=== PATIENT | female | born 1940 | race Caucasian/White ===

== ENCOUNTER 2017-10-16 15:39 | Inpatient (IN) | END 2017-10-20 17:05 | disposition home or self-care (01) | DRG 253 ==

== ENCOUNTER 2018-02-26 07:25 | Inpatient (IN) | END 2018-03-07 17:55 | DRG 270 ==

== ENCOUNTER 2018-03-15 16:08 | Inpatient (IN) | END 2018-04-02 18:06 | DRG 226 ==

== ENCOUNTER 2018-04-30 14:36 | Inpatient (IN) | END 2018-05-07 14:36 | DRG 239 ==

== ENCOUNTER 2018-06-05 20:01 | Inpatient (IN) | END 2018-06-12 19:05 | DRG 854 ==

== ENCOUNTER 2018-08-20 06:07 | Day surgery (SDC) | payer MEDICARE, OTHER ==
[~2018-08-20 06:07] MED LIST: ACET-2047 PO; ASPI81TA52 PO; ATOR40TA68 PO; CLOP75TA27 PO; ISOS30TA67 PO; LANT3I SC; LINA5TAB PO; LISI-313 PO; LUBI24CA7 PO; MAGN400O19 PO; METO-335 PO; MULTI PO; NITR0.4T39 SL; NOVO3I SC; ONDA4TAB13 PO; PANT40TA3 PO; POLY17PO6 PO
[2018-08-20] MEDS ORDERED: POLYMYXIN B 500000 UNIT INJ ONE (06:44)
[2018-08-20] MEDS ORDERED: BACITRACIN 50000 UNITS INJ ONE (06:47)
[2018-08-20 07:00] VITALS: BP 152/65; PULSE 77; RESP 18
[2018-08-20] MEDS ORDERED: ACETAMINOPHEN 500 MG TAB PO ONE (07:00)
--- NOTE | 2018-08-20 07:06 | PREAC ---
Date/Time of Note Date/Time of Note DATE: 08/20/18 TIME: 07:01 Anesthesia Eval and Record Evaluation Time Pre-Procedure Interview DATE: 08/20/18 TIME: 07:01 Age 78 Sex female NPO: 8 hrs Preoperative diagnosis L foot ulcer Planned procedure L foot wound bed prep and application of integra skin allograft Past Medical History Past Medical History: Includes (cardiomyopathy) Cardio: HTN, Dyslipidemia, [place] Endo: Diabetes Renal: CKD Surgery & Anesthesia Issues No known issue (pacemaker) Meds Anticoagulation: Yes (on plavix, pt did not stop taking it - dr milton will be made aware by nurse now @[phone] , most likely case will be cancelled.) Beta Kelsey within 24 hr: Yes Reason Beta Kelsey not given: Pt. not on B-Kelsey Active Scripts Insulin Glargine* (Lantus*) 100 Unit/Ml Soln, 7 UNIT SC BID WITH MEALS, #1 VIAL Prov:TAMIA NOEL MD 06/11/18 Reported Medications Ondansetron Hcl* (Zofran*) 4 Mg Tab, 4 MG PO Q6H PRN for NAUSEA AND OR VOMITING, TAB 04/30/18 Lubiprostone* (Amitiza*) 24 Mcg Capsule, 24 MCG PO BID PRN for CONSTIPATION, #60 CAP 04/30/18 Lisinopril* (Lisinopril*) 5 Mg Tablet, 5 MG PO BID, #30 TAB 04/30/18 Metoprolol Succinate* (Toprol XL*) 25 Mg Tab.sr.24h, 25 MG PO BID, #30 TAB 04/30/18 Isosorbide Mononitrate* (Isosorbide Mononitrate*) 30 Mg Tab.er.24h, 30 MG PO DAILY, TAB 04/30/18 Polyethylene Glycol* (Miralax*) 17 Gm Powd.pack, 17 GM PO DAILY PRN for C ONSTIPATION, #30 PACKET 04/30/18 Magnesium Hydroxide* (Milk Of Magnesia*) 400 Mg/5 Ml Oral.susp, 30 ML PO DAILY, ML 04/30/18 Multivitamins* (Theragran*) 1 Tab Tab, 1 TAB PO DAILY, TAB 04/30/18 Clopidogrel Bisulfate (Clopidogrel) 75 Mg Tablet, 75 MG PO DAILY, #30 TAB 04/30/18 Pantoprazole* (Protonix*) 40 Mg Tablet.dr, 40 MG PO DAILY, TAB 03/15/18 Aspirin (Low Dose Aspirin) 81 Mg Tablet.dr, 81 MG PO DAILY, #30 TAB 03/15/18 Insulin Aspart* (Novolog Insulin Pen*) 100 Unit/Ml Soln, 0 SC WITH MEALS BEDTIME, EA SLIDING SCALE 150-199 = 2 UNITS 200-249 = 3 UNITS 250-299 = 5 UNITS 300-349 = 7 UNITS OVER 349 = 10 UNITS NOTIFY MD BELOW 6 OR ABOVE 350 03/15/18 Linagliptin (TRADJENTA) 5 Mg Tablet, 5 MG PO DAILY, TAB 03/15/18 Nitroglycerin* (Nitrostat*) 0.4 Mg Tab.subl, 0.4 MG SL Q5MIN PRN for CHEST PAIN, BOTTLE 03/15/18 Acetaminophen* (Acetaminophen*) 650 Mg Tablet, 650 MG PO Q6H PRN for MILD PAIN LEVEL 1-3, #30 TAB AND TEMP >101 03/15/18 Atorvastatin* (Atorvastatin*) 40 Mg Tablet, 40 MG PO QHS, #30 TAB 10/16/17 Meds reviewed: Yes Allergies Coded Allergies: No Known Allergies (Verified Allergy, Unknown, 06/05/18) Allergies Reviewed: Yes Labs/Studies Labs Reviewed: Reviewed by anesthesiologist test: N/A Studies: ECG Pre-procedure Exam Airway: Adequate mouth opening, Adequate thyromental dist Mallampati: Mallampati II Teeth: Abnormal (teeth in poor condition, multiple chipped front teeth, missing teeth, broken teeth) Lung: Normal Heart: Normal ASA Physical Status ASA physical status: 3 Emergency: None Planned Anesthetic General/MAC: MAC Pre-operative Attestations Prior to commencing anesthesia and surgery, the patient was re-evaluated, there was verification of: *The patient's identity *The results of appropriate recent lab work and preoperative vital signs *The above evaluation not changing prior to induction *Anesthetic plan, risk benefits, alternative and complications discussed with patient/family; questions answered; patient/family understands, accepts and wishes to proceed. SATURNINO HANSEN Aug 20, 2018 07:06
[2018-08-20] MEDS ORDERED: ONDANSETRON 4 MG INJ ONE (11:49)
[2018-08-20] MEDS ORDERED: METOCLOPRAMIDE 10 MG INJ ONE (11:49)
[2018-08-20] MEDS ORDERED: GLYCOPYRROLATE 0.4 MG INJ ONE (11:49)
[2018-08-20] MEDS ORDERED: NEOSTIGMINE 10 MG INJ ONE (11:49)
[2018-08-20] MEDS ORDERED: DEXAMETHASONE 4 MG/ML 5 ML INJ ONE (11:49)
[2018-08-20] MEDS ORDERED: MEPERIDINE 100 MG INJ ONE (12:07)
== END 2018-08-20 07:25 ==
LOC: SDS 06:07
PROVIDERS: ATTEND Podiatrist Foot & Ankle Surgery
DX: E11.621 Type 2 diabetes mellitus with foot ulcer (principal); Z53.9 Procedure and treatment not carried out, unspecified reason; E78.5 Hyperlipidemia, unspecified; I25.2 Old myocardial infarction; I12.9 Hypertensive chronic kidney disease with stage 1 through stage 4 chronic kidney disease, or unspecified chronic kidney disease; N18.9 Chronic kidney disease, unspecified
CPT/HCPCS: 82962; J1100; J2175; J2405; J2710; J2765

== ENCOUNTER 2018-08-30 13:34 | Day surgery (SDC) | payer MEDICARE, OTHER ==
[2018-08-30] VITALS (21 sets, daily range): BP systolic 128–190; BP diastolic 55–82; PULSE 82–112; RESP 16–21
[2018-08-30] MEDS ORDERED: ASCO500C7 PO (14:06)
[2018-08-30] MEDS ORDERED: ZINC220T PO (14:06)
[2018-08-30] MEDS ORDERED: MUPI15CR9 TOP (14:08)
[2018-08-30] MEDS ORDERED: LISI10TA2 PO (14:08)
[2018-08-30] MEDS ORDERED: MELA3TAB17 PO (14:09)
[2018-08-30] MEDS ORDERED: SODI30SP2 NS (14:10)
[2018-08-30] MEDS ORDERED: LANT3I SC (14:11)
[2018-08-30] MEDS ORDERED: CLOT15CR62 TOP (14:14)
[2018-08-30] MEDS ORDERED: ACET-141 PO (14:14)
[2018-08-30] MEDS ORDERED: GENT30CR TOP (14:15)
[2018-08-30] MEDS ORDERED: BENZ1LOZ52 MM (14:16)
[2018-08-30] MEDS ORDERED: HYDR-4011 PO (14:17)
[2018-08-30] MEDS ORDERED: ISOS30TA20 PO (14:21)
[2018-08-30] MEDS ORDERED: INSULIN REGULAR, HUMAN 100 UNIT/1 ML 3ML VIAL ONE (15:49)
[2018-08-30] MEDS ORDERED: INSULIN REGULAR, HUMAN 100 UNIT/1 ML 3ML VIAL SC ONE (16:00)
--- NOTE | 2018-08-30 16:49 | PREAC ---
Date/Time of Note Date/Time of Note DATE: 08/30/18 TIME: 16:47 Anesthesia Eval and Record Evaluation Time Pre-Procedure Interview DATE: 08/30/18 TIME: 16:47 Age 78 Sex female NPO: 8 hrs Preoperative diagnosis LT FOOT ULCER Planned procedure Lt foot debridement, application of skin graft Past Medical History Past Medical History: Includes Cardio: HTN, Dyslipidemia, CAD, PTCA/Stent Endo: Diabetes GI: Obesity Surgery & Anesthesia Issues No known issue Meds Anticoagulation: Yes Beta Kelsey within 24 hr: Yes Reported Medications Isosorbide Dinitrate* (Isosorbide Dinitrate*) 30 Mg Tablet, 30 MG PO DAILY, TAB 08/30/18 Hydrocodone/Acetaminophen ([place] 5-325 Tablet) 1 Each Tablet, 1 EACH PO Q6 PRN for PAIN LEVEL 7-10, TAB 08/30/18 Benzocaine/Menthol* (Cepacol* Sore Throat Lozenges) 1 Each Lozenge, 1 EACH MM Q6 PRN for SORE THROAT, LOZENGE 08/30/18 Gentamicin Sulfate* (Gentamicin Sulfate* Cream) 0.1% - 30 Gm Cream.gm., 1 APPLIC TOP DAILY, EA 08/30/18 Betamethasone-Clotrimazole* (Lotrisone*) 15 Gm Cr, 1 APPLIC TOP BID, TUB 08/30/18 Acetaminophen* (Acetaminophen*) 500 MG Extra Strength Tablet, 1000 MG PO DAILY, TAB PRIOR TO WOUND CARE 08/30/18 Insulin Glargine* (Lantus*) 100 Unit/Ml Soln, 10 UNIT SC BID, #1 VIAL 08/30/18 Sodium Chloride (Saline Nasal [place]) 30 Ml [place], 1 SPRAY NS EACH NOSTRIL, SPRAY 08/30/18 Melatonin (Melatonin) 3 Mg Tablet.sa, 6 MG PO HS, TAB.SA 08/30/18 Mupirocin Calcium* (Mupirocin*) 2% - 15 Gram Cream..g., 1 APPLIC TOP TID, #1 TUB 08/30/18 Lisinopril* (Lisinopril*) 10 Mg Tablet, 10 MG PO BID, #30 TAB 08/30/18 Zinc Sulfate* (Zinc Sulfate*) 220 Mg Tablet, 220 MG PO DAILY, TAB 08/30/18 Ascorbic Acid* (Vitamin C*) 500 Mg Capsule.sa, 500 MG PO DAILY, CAP 08/30/18 Ondansetron Hcl* (Zofran*) 4 Mg Tab, 4 MG PO Q6H PRN for NAUSEA AND OR VOMITING, TAB 04/30/18 Lubiprostone* (Amitiza*) 24 Mcg Capsule, 24 MCG PO BID PRN for CONSTIPATION, #60 CAP 04/30/18 Metoprolol Succinate* (Toprol XL*) 25 Mg Tab.sr.24h, 25 MG PO BID, #30 TAB 04/30/18 Polyethylene Glycol* (Miralax*) 17 Gm Powd.pack, 17 GM PO DAILY PRN for CONSTIPATION, #30 PACKET 04/30/18 Magnesium Hydroxide* (Milk Of Magnesia*) 400 Mg/5 Ml Oral.susp, 30 ML PO DAILY, ML 04/30/18 Multivitamins* (Theragran*) 1 Tab Tab, 1 TAB PO DAILY, TAB 04/30/18 Clopidogrel Bisulfate (Clopidogrel) 75 Mg Tablet, 75 MG PO DAILY, #30 TAB 04/30/18 Pantoprazole* (Protonix*) 40 Mg Tablet.dr, 40 MG PO DAILY, TAB 03/15/18 Aspirin (Low Dose Aspirin) 81 Mg Tablet.dr, 81 MG PO DAILY, #30 TAB 03/15/18 Insulin Aspart* (Novolog Insulin Pen*) 100 Unit/Ml Soln, 0 SC WITH MEALS BEDTIME, EA SLIDING SCALE 150-199 = 2 UNITS 200-249 = 3 UNITS 250-299 = 5 UNITS 300-349 = 7 UNITS OVER 349 = 10 UNITS NOTIFY MD BELOW 6 OR ABOVE 350 03/15/18 Linagliptin (TRADJENTA) 5 Mg Tablet, 5 MG PO DAILY, TAB 03/15/18 Nitroglycerin* (Nitrostat*) 0.4 Mg Tab.subl, 0.4 MG SL Q5MIN PRN for CHEST PAIN, BOTTLE 03/15/18 Acetaminophen* (Acetaminophen*) 650 Mg Tablet, 650 MG PO Q6H PRN for MILD PAIN LEVEL 1-3, #30 TAB AND TEMP >101 03/15/18 Atorvastatin* (Atorvastatin*) 40 Mg Tablet, 40 MG PO QHS, #30 TAB 10/16/17 Discontinued Reported Medications Lisinopril* (Lisinopril*) 5 Mg Tablet, 5 MG PO BID, #30 TAB 04/30/18 Isosorbide Mononitrate* (Isosorbide Mononitrate*) 30 Mg Tab.er.24h, 30 MG PO DAILY, TAB 04/30/18 Discontinued Scripts Insulin Glargine* (Lantus*) 100 Unit/Ml Soln, 7 UNIT SC BID WITH MEALS, #1 VIAL Prov:TAMIA NOEL MD 06/11/18 Meds reviewed: Yes Allergies Coded Allergies: No Known Allergies (Verified Allergy, Unknown, 08/30/18) Allergies Reviewed: Yes Labs/Studies Labs Reviewed: Reviewed by anesthesiologist test: N/A Studies: ECG Pre-procedure Exam Last vitals Vital Signs Date Temp Pulse Resp B/P (MAP) Pulse Ox O2 O2 Flow FiO2 Time Delivery Rate 08/30/18 98.6 82 16 190/79 100 Room Air 13:56 (116) 186/76 (112) Airway: Adequate mouth opening, Adequate thyromental dist Mallampati: Mallampati II Teeth: Normal Lung: Normal Heart: Normal ASA Physical Status ASA physical status: 3 Emergency: None Planned Anesthetic General/MAC: LMA Planned Pain Management Parenteral pain med Pre-operative Attestations Prior to commencing anesthesia and surgery, the patient was re-evaluated, there was verification of: *The patient's identity *The results of appropriate recent lab work and preoperative vital signs *The above evaluation not changing prior to induction *Anesthetic plan, risk benefits, alternative and complications discussed with patient/family; questions answered; patient/family understands, accepts and wishes to proceed. GRETCHEN QUEEN MD Aug 30, 2018 16:49
--- NOTE | 2018-08-30 16:55 | HPN ---
Date/Time of Note Date/Time of Note DATE: 08/30/18 TIME: 16:54 Interval H&P Admission Note Pt. seen H&P reviewed: No system changes KALE AIKEN DPM Aug 30, 2018 16:54
[2018-08-30] MEDS ORDERED: MIDAZOLAM 1 MG/ML 2 ML INJ ONE (17:03)
[2018-08-30] MEDS ORDERED: FENTAnyl 50 MCG/ML VIAL ONE (17:03)
--- NOTE | 2018-08-30 17:37 | HPN ---
Date/Time of Note Date/Time of Note DATE: 08/30/18 TIME: 17:37 Interval H&P Admission Note Pt. seen H&P reviewed: No system changes CARLY PADILLA DPM Aug 30, 2018 17:37
[2018-08-30] MEDS ORDERED: CEFAZOLIN 1 GM INJ ONE (17:40)
[2018-08-30] MEDS ORDERED: ONDANSETRON 4 MG INJ ONE (17:40)
[2018-08-30] MEDS ORDERED: LIDOCAINE 2% (SDV) 5 ML INJ ONE (17:40)
[2018-08-30] MEDS ORDERED: ETOMIDATE 20 MG INJ ONE (17:40)
[2018-08-30] MEDS ORDERED: hydrALAzine 20 MG INJ ONE (17:41)
--- NOTE | 2018-08-30 17:42 | SIPON ---
Date/Time of Note Date/Time of Note DATE: 08/30/18 TIME: 17:37 Operative Report Preoperative Diagnosis Left foot open TMA Left foot plantar ulceration DM2 with PN Postoperative Diagnosis same Operation/Procedure Performed left foot wound prep left foot application acellular dermal replacement Surgeon Matt Foster Anesthesia: general Estimated blood loss: 10 - 50 ml's Transfusion Required none Specimen wound culture Grafts/Implants integra Complications none CARLY PADILLA DPM Aug 30, 2018 17:42
[2018-08-30] MEDS ORDERED: POLYMYXIN/BACITRACIN 1L IRRIG IRR ONE (17:50)
--- NOTE | 2018-08-30 17:58 | PAC ---
Date/Time of Note Date/Time of Note DATE: 08/30/18 TIME: 17:58 Post-Anesthesia Notes Post-Anesthesia Note Last documented vital signs Vital Signs Date Temp Pulse Resp B/P (MAP) Pulse Ox O2 O2 Flow FiO2 Time Delivery Rate 08/30/18 98.6 82 16 190/79 100 Room Air 13:56 (116) 186/76 (112) Activity: WNL Respiratory function: WNL Cardiovascular function: WNL Mental status: Baseline Pain reasonably controlled: Yes Hydration appropriate: Yes Nausea/Vomiting absent: Yes Comments BP:148/58, P;98, Spo2:100%, T:98,8 GRETCHEN QUEEN MD Aug 30, 2018 17:58
[2018-08-30] MEDS ORDERED: ONDANSETRON 4 MG INJ IV PRN ×2 (18:00→18:30)
[2018-08-30] MEDS ORDERED: FENTAnyl 50 MCG/ML VIAL IV PRN (18:00)
[2018-08-30] MEDS ORDERED: HYDROmorphONE 1 MG/5 ML IV SYRINGE IV PRN ×2 (18:00)
[2018-08-30] MEDS ORDERED: LABETALOL HCL 20MG INJ IV PRN (18:00)
[2018-08-30] MEDS ORDERED: DIPHENHYDRAMINE 50 MG INJ IV PRN (18:00)
[2018-08-30] MEDS ORDERED: hydrALAzine 20 MG INJ IV PRN (18:00)
--- NOTE | 2018-08-30 18:17 | OPR ---
DATE OF OPERATION: 08/30/2018 SURGEON: Carly Gutierrez DPM NURSE SPECIALIST: Deon Foster DPM PREOPERATIVE DIAGNOSES: 1. Left foot open transmetatarsal amputation. 2. Left foot transmetatarsal amputation. POSTOPERATIVE DIAGNOSES: 1. Left foot open transmetatarsal amputation. 2. Left foot transmetatarsal amputation. PROCEDURES PERFORMED: 1. Left foot wound bed preparation. 2. Application of acellular dermal replacement graft. PATHOLOGY: Wound cultures. ANESTHESIA: General. ANESTHESIOLOGIST: Marc Wilkinson MD ESTIMATED BLOOD LOSS: 10 to 15 mL. MATERIALS: Skin glenny and Integra bilayer. COMPLICATIONS: None. INDICATION FOR PROCEDURE: The patient with a diabetic foot ulceration is undergoing wound care for o pen transmetatarsal amputation with some improvement, at this time presents for application of allogr aft to help assist the wound healing process. DESCRIPTION OF PROCEDURE: The patient was brought into the operating room and placed in the supine p osition. Formal timeout was performed. The patient was given 2 grams of Ancef. Extremity was prepp ed with Betadine scrub and paint and draped in usual sterile fashion. At this time, the wound was pr epared for allograft with pickups, scissors, 15-blade, curette. Wound cultures were obtained. Wound was irrigated with saline with bacitracin and had estimated blood loss of 10 to 15 mL. At this time , Integra bilayer was then secured to the wound bed with skin glenny. Hemostasis was achieved intra operatively and was wrapped with a nonadhering and bulky soft dressing. The patient tolerated the pr ocedure well, transferred to PACU with vital signs stable. POSTOPERATIVE PLAN: The patient is stable for discharge. Advise followup in 1 week. Nonweightbeari ng. We will follow up on the culture results when they become available. Dictated By: CARLY GUTIERREZ DPM RB/JOREG Conf#: [id number] DID#: [id number]
[2018-08-30] MEDS ORDERED: KETOROLAC 30 MG INJ IV PRN (18:30)
== END 2018-08-30 19:40 ==
LOC: SDS 13:34 → EDSEX 13:34 → SDS 19:40
PROVIDERS: ATTEND Podiatrist Foot & Ankle Surgery
DX: E11.621 Type 2 diabetes mellitus with foot ulcer (principal); Z89.432 Acquired absence of left foot
CPT/HCPCS: 15275; 82962; 87070; 87075; 87102; 88304; J0360; J0690; J1815; J1885; J2250; J2405; J3010; Q4104

== ENCOUNTER 2018-11-08 14:39 | Day surgery (SDC) | payer MEDICARE, OTHER ==
[2018-11-08] VITALS (20 sets, daily range): BP systolic 131–157; BP diastolic 57–98; PULSE 68–83; RESP 13–25; Ht 154.9 cm; Wt 52.3 kg
[~2018-11-08] VITALS: Ht 154.9 cm; Wt 52.3 kg
[~2018-11-08 14:39] MED LIST changes: +ACET-141 PO; +ASCO500C7 PO; +BENZ1LOZ52 MM; +CEFAZOLIN 2 GM/50 ML (PMX) 50 ML IVPB ONE; +CLOT15CR62 TOP; +GENT30CR TOP; +HYDR-4011 PO; +ISOS30TA20 PO; -ISOS30TA67 PO; -LISI-313 PO; +LISI10TA2 PO; +MELA3TAB17 PO; +MUPI15CR9 TOP; +SODI30SP2 NS; +ZINC220T PO
[2018-11-08] MEDS ORDERED: INSULIN LISPRO 100 UNIT/ML VIAL SC ONE (16:30)
[2018-11-08] MEDS ORDERED: INSULIN ASPART [NOVOLOG] 3 ML PEN SC ONE (16:30)
[2018-11-08] MEDS ORDERED: ACCU-CHEK XX ONE (16:30)
[2018-11-08] MEDS ORDERED: SOD CHLORIDE 0.9% 1,000 ML IV SCH (16:52)
[2018-11-08] MEDS ORDERED: PROPOFOL 20 ML ONE (17:47)
[2018-11-08] MEDS ORDERED: ROCURONIUM 50 MG INJ ONE (17:47)
[2018-11-08] MEDS ORDERED: LIDOCAINE 100 MG SYRINGE ONE (17:47)
[2018-11-08] MEDS ORDERED: MINERAL OIL LIGHT 10 ML VIAL ONE (17:47)
[2018-11-08] MEDS ORDERED: CEFAZOLIN 1 GM INJ ONE ×2 (17:47→18:41)
[2018-11-08] MEDS ORDERED: LIDOCAINE 1% (MPF) 30 ML INJ ONE (17:47)
[2018-11-08] MEDS ORDERED: FENTAnyl 50 MCG/ML VIAL ONE (17:48)
[2018-11-08] MEDS ORDERED: ONDANSETRON 4 MG INJ ONE (17:51)
[2018-11-08] MEDS ORDERED: DEXAMETHASONE 4 MG/ML 5 ML INJ ONE (17:51)
--- NOTE | 2018-11-08 17:54 | HPN ---
Date/Time of Note Date/Time of Note DATE: 11/08/18 TIME: 17:54 Interval H&P Admission Note Pt. seen H&P reviewed: No system changes KALE AIKEN DPM November 08, 2018 17:54
--- NOTE | 2018-11-08 18:04 | PREAC ---
KIMBERLY CRESPO 11/08/18 1804: Date/Time of Note Date/Time of Note DATE: 11/08/18 TIME: 17:58 Anesthesia Eval and Record Evaluation Time Pre-Procedure Interview DATE: 11/08/18 TIME: 17:58 Age 78 Sex female NPO: 8 hrs Preoperative diagnosis left foot diabetic ulcer / peripheral neuropathy Planned procedure LEFT FOOT WOUND BED Past Medical History Past Medical History: Includes Cardio: HTN, PTCA/Stent, PPM/AICD, CHF Endo: Diabetes GI: GERD Surgery & Anesthesia Issues No known issue Meds Anticoagulation: No Beta Kelsey within 24 hr: No Active Scripts Cefdinir (Cefdinir) 300 Mg Capsule, 300 MG PO BID for 14 Days, #28 CAP 0 Refills Prov:KALE AIKEN DPM 11/08/18 Reported Medications Isosorbide Dinitrate* (Isosorbide Dinitrate*) 30 Mg Tablet, 30 MG PO DAILY, TAB 08/30/18 Hydrocodone/Acetaminophen ([place] 5-325 Tablet) 1 Each Tablet, 1 EACH PO Q6 PRN for PAIN LEVEL 7-10, TAB 08/30/18 Betamethasone-Clotrimazole* (Lotrisone*) 15 Gm Cr, 1 APPLIC TOP BID, TUB 08/30/18 Acetaminophen* (Acetaminophen*) 500 MG Extra Strength Tablet, 1000 MG PO DAILY, TAB PRIOR TO WOUND CARE 08/30/18 Insulin Glargine* (Lantus*) 100 Unit/Ml Soln, 10 UNIT SC BID, #1 VIAL 08/30/18 Sodium Chloride (Saline Nasal [place]) 30 Ml [place], 1 SPRAY NS EACH NOSTRIL, SPRAY 08/30/18 Melatonin (Melatonin) 3 Mg Tablet.sa, 6 MG PO HS, TAB.SA 08/30/18 Lisinopril* (Lisinopril*) 10 Mg Tablet, 10 MG PO BID, #30 TAB 08/30/18 Zinc Sulfate* (Zinc Sulfate*) 220 Mg Tablet, 220 MG PO DAILY, TAB 08/30/18 Ascorbic Acid* (Vitamin C*) 500 Mg Capsule.sa, 500 MG PO DAILY, CAP 08/30/18 Ondansetron Hcl* (Zofran*) 4 Mg Tab, 4 MG PO Q6H PRN for NAUSEA AND OR VOMITING, TAB 04/30/18 Lubiprostone* (Amitiza*) 24 Mcg Capsule, 24 MCG PO BID PRN for CONSTIPATION, #60 CAP 04/30/18 Metoprolol Succinate* (Toprol XL*) 25 Mg Tab.sr.24h, 25 MG PO BID, #30 TAB 04/30/18 Polyethylene Glycol* (Miralax*) 17 Gm Powd.pack, 17 GM PO DAILY PRN for CONSTIPATION, #30 PACKET 04/30/18 Magnesium Hydroxide* (Milk Of Magnesia*) 400 Mg/5 Ml Oral.susp, 30 ML PO DAILY, ML 04/30/18 Multivitamins* (Theragran*) 1 Tab Tab, 1 TAB PO DAILY, TAB 04/30/18 Clopidogrel Bisulfate (Clopidogrel) 75 Mg Tablet, 75 MG PO DAILY, #30 TAB 04/30/18 Pantoprazole* (Protonix*) 40 Mg Tablet.dr, 40 MG PO DAILY, TAB 03/15/18 Aspirin (Low Dose Aspirin) 81 Mg Tablet.dr, 81 MG PO DAILY, #30 TAB 03/15/18 Insulin Aspart* (Novolog Insulin Pen*) 100 Unit/Ml Soln, 0 SC WITH MEALS BEDTIME, EA SLIDING SCALE 150-199 = 2 UNITS 200-249 = 3 UNITS 250-299 = 5 UNITS 300-349 = 7 UNITS OVER 349 = 10 UNITS NOTIFY MD BELOW 6 OR ABOVE 350 03/15/18 Linagliptin (TRADJENTA) 5 Mg Tablet, 5 MG PO DAILY, TAB 03/15/18 Nitroglycerin* (Nitrostat*) 0.4 Mg Tab.subl, 0.4 MG SL Q5MIN PRN for CHEST PAIN, BOTTLE 03/15/18 Acetaminophen* (Acetaminophen*) 650 Mg Tablet, 650 MG PO Q6H PRN for MILD PAIN LEVEL 1-3, #30 TAB AND TEMP >101 03/15/18 Atorvastatin* (Atorvastatin*) 40 Mg Tablet, 40 MG PO QHS, #30 TAB 10/16/17 Discontinued Reported Medications Benzocaine/Menthol* (Cepacol* Sore Throat Lozenges) 1 Each Lozenge, 1 EACH MM Q6 PRN for SORE THROAT, LOZENGE 08/30/18 Gentamicin Sulfate* (Gentamicin Sulfate* Cream) 0.1% - 30 Gm Cream.gm., 1 APPLIC TOP DAILY, EA 08/30/18 Mupirocin Calcium* (Mupirocin*) 2% - 15 Gram Cream..g., 1 APPLIC TOP TID, #1 TUB 08/30/18 Current Medications Sodium Chloride 1,000 ml @ 25 mls/hr Q24H IV Last administered on 11/08/18at 1 7:49; Admin Dose 25 MLS/HR; Start 11/08/18 at 16:52 Meds reviewed: Yes Allergies Coded Allergies: No Known Allergies (Verified Allergy, Unknown, 08/30/18) Allergies Reviewed: Yes Labs/Studies Labs Reviewed: Reviewed by anesthesiologist Studies: ECG, CXR, 2D Echo (EF 30%) Pre-procedure Exam Last vitals Vital Signs Date Temp Pulse Resp B/P (MAP) Pulse Ox O2 O2 Flow FiO2 Time Delivery Rate 11/08/18 97.9 68 18 134/63 97 Room Air 16:47 (86) Airway: Adequate mouth opening Teeth: Normal Lung: Normal Heart: Normal ASA Physical Status ASA physical status: 3 Emergency: None Planned Anesthetic General/MAC: MAC Pre-operative Attestations Prior to commencing anesthesia and surgery, the patient was re-evaluated, there was verification of: *The patient's identity *The results of appropriate recent lab work and preoperative vital signs *The above evaluation not changing prior to induction *Anesthetic plan, risk benefits, alternative and complications discussed with patient/family; questions answered; patient/family understands, accepts and wishes to proceed. JORGE GRIMALDO MD 11/08/181811: Anesthesia Eval and Record Evaluation NPO: 8 hrs Preoperative diagnosis Left foot diabetic ulcer Planned procedure Left foot wound bed preparation, application of STSG Past Medical History Past Medical History: Includes Cardio: HTN, Dyslipidemia, CAD, PTCA/Stent Endo: Diabetes Meds Active Scripts Cefdinir (Cefdinir) 300 Mg Capsule, 300 MG PO BID for 14 Days, #28 CAP 0 Refills Prov:KALE AIKEN DPKaterine 11/08/18 Reported Medications Isosorbide Dinitrate* (Isosorbide Dinitrate*) 30 Mg Tablet, 30 MG PO DAILY, TAB 08/30/18 Hydrocodone/Acetaminophen ([place] 5-325 Tablet) 1 Each Tablet, 1 EACH PO Q6 PRN for PAIN LEVEL 7-10, TAB 08/30/18 Betamethasone-Clotrimazole* (Lotrisone*) 15 Gm Cr, 1 APPLIC TOP BID, TUB 08/30/18 Acetaminophen* (Acetaminophen*) 500 MG Extra Strength Tablet, 1000 MG PO DAILY, TAB PRIOR TO WOUND CARE 08/30/18 Insulin Glargine* (Lantus*) 100 Unit/Ml Soln, 10 UNIT SC BID, #1 VIAL 08/30/18 Sodium Chloride (Saline Nasal [place]) 30 Ml [place], 1 SPRAY NS EACH NOSTRIL, SPRAY 08/30/18 Melatonin (Melatonin) 3 Mg Tablet.sa, 6 MG PO HS, TAB.SA 08/30/18 Lisinopril* (Lisinopril*) 10 Mg Tablet, 10 MG PO BID, #30 TAB 08/30/18 Zinc Sulfate* (Zinc Sulfate*) 220 Mg Tablet, 220 MG PO DAILY, TAB 08/30/18 Ascorbic Acid* (Vitamin C*) 500 Mg Capsule.sa, 500 MG PO DAILY, CAP 08/30/18 Ondansetron Hcl* (Zofran*) 4 Mg Tab, 4 MG PO Q6H PRN for NAUSEA AND OR VOMITING, TAB 04/30/18 Lubiprostone* (Amitiza*) 24 Mcg Capsule, 24 MCG PO BID PRN for CONSTIPATION, #60 CAP 04/30/18 Metoprolol Succinate* (Toprol XL*) 25 Mg Tab.sr.24h, 25 MG PO BID, #30 TAB 04/30/18 Polyethylene Glycol* (Miralax*) 17 Gm Powd.pack, 17 GM PO DAILY PRN for CONSTIPATION, #30 PACKET 04/30/18 Magnesium Hydroxide* (Milk Of Magnesia*) 400 Mg/5 Ml Oral.susp, 30 ML PO DAILY, ML 04/30/18 Multivitamins* (Theragran*) 1 Tab Tab, 1 TAB PO DAILY, TAB 04/30/18 Clopidogrel Bisulfate (Clopidogrel) 75 Mg Tablet, 75 MG PO DAILY, #30 TAB 04/30/18 Pantoprazole* (Protonix*) 40 Mg Tablet.dr, 40 MG PO DAILY, TAB 03/15/18 Aspirin (Low Dose Aspirin) 81 Mg Tablet.dr, 81 MG PO DAILY, #30 TAB 03/15/18 Insulin Aspart* (Novolog Insulin Pen*) 100 Unit/Ml Soln, 0 SC WITH MEALS BEDTIME, EA SLIDING SCALE 150-199 = 2 UNITS 200-249 = 3 UNITS 250-299 = 5 UNITS 300-349 = 7 UNITS OVER 349 = 10 UNITS NOTIFY MD BELOW 6 OR ABOVE 350 03/15/18 Linagliptin (TRADJENTA) 5 Mg Tablet, 5 MG PO DAILY, TAB 03/15/18 Nitroglycerin* (Nitrostat*) 0.4 Mg Tab.subl, 0.4 MG SL Q5MIN PRN for CHEST PAIN, BOTTLE 03/15/18 Acetaminophen* (Acetaminophen*) 650 Mg Tablet, 650 MG PO Q6H PRN for MILD PAIN LEVEL 1-3, #30 TAB AND TEMP >101 03/15/18 Atorvastatin* (Atorvastatin*) 40 Mg Tablet, 40 MG PO QHS, #30 TAB 10/16/17 Discontinued Reported Medications Benzocaine/Menthol* (Cepacol* Sore Throat Lozenges) 1 Each Lozenge, 1 EACH MM Q6 PRN for SORE THROAT, LOZENGE 08/30/18 Gentamicin Sulfate* (Gentamicin Sulfate* Cream) 0.1% - 30 Gm Cream.gm., 1 APPLIC TOP DAILY, EA 08/30/18 Mupirocin Calcium* (Mupirocin*) 2% - 15 Gram Cream..g., 1 APPLIC TOP TID, #1 TUB 08/30/18 Allergies Coded Allergies: No Known Allergies (Verified Allergy, Unknown, 08/30/18) KIMBERLY CRESPO November 08, 2018 18:04 JORGE GRIMALDO MD November 08, 2018 18:12
[2018-11-08] MEDS ORDERED: TOBRAMYCIN 1.2 GM POWDER ONE (18:10)
[2018-11-08] MEDS ORDERED: VANCOMYCIN 1 GM INJ ONE (18:10)
--- NOTE | 2018-11-08 18:16 | PREAC ---
Date/Time of Note Date/Time of Note DATE: 11/08/18 TIME: 18:15 Anesthesia Eval and Record Evaluation Time Pre-Procedure Interview DATE: 11/08/18 TIME: 18:15 Age 78 Sex female NPO: 8 hrs Preoperative diagnosis Left foot diabetic ulcer Planned procedure Left foot wound bed preparation Past Medical History Past Medical History: Includes Cardio: HTN, Dyslipidemia, CAD, PTCA/Stent, PPM/AICD Endo: Diabetes Surgery & Anesthesia Issues No known issue Meds Anticoagulation: No Beta Kelsey within 24 hr: Yes Reported Medications Isosorbide Dinitrate* (Isosorbide Dinitrate*) 30 Mg Tablet, 30 MG PO DAILY, TAB 08/30/18 Hydrocodone/Acetaminophen ([place] 5-325 Tablet) 1 Each Tablet, 1 EACH PO Q6 PRN for PAIN LEVEL 7-10, TAB 08/30/18 Betamethasone-Clotrimazole* (Lotrisone*) 15 Gm Cr, 1 APPLIC TOP BID, TUB 08/30/18 Acetaminophen* (Acetaminophen*) 500 MG Extra Strength Tablet, 1000 MG PO DAILY, TAB PRIOR TO WOUND CARE 08/30/18 Insulin Glargine* (Lantus*) 100 Unit/Ml Soln, 10 UNIT SC BID, #1 VIAL 08/30/18 Sodium Chloride (Saline Nasal [place]) 30 Ml [place], 1 SPRAY NS EACH NOSTRIL, SPRAY 08/30/18 Melatonin (Melatonin) 3 Mg Tablet.sa, 6 MG PO HS, TAB.SA 08/30/18 Lisinopril* (Lisinopril*) 10 Mg Tablet, 10 MG PO BID, #30 TAB 08/30/18 Zinc Sulfate* (Zinc Sulfate*) 220 Mg Tablet, 220 MG PO DAILY, TAB 08/30/18 Ascorbic Acid* (Vitamin C*) 500 Mg Capsule.sa, 500 MG PO DAILY, CAP 08/30/18 Ondansetron Hcl* (Zofran*) 4 Mg Tab, 4 MG PO Q6H PRN for NAUSEA AND OR VOMITING, TAB 04/30/18 Lubiprostone* (Amitiza*) 24 Mcg Capsule, 24 MCG PO BID PRN for CONSTIPATION, #60 CAP 04/30/18 Metoprolol Succinate* (Toprol XL*) 25 Mg Tab.sr.24h, 25 MG PO BID, #30 TAB 04/30/18 Polyethylene Glycol* (Miralax*) 17 Gm Powd.pack, 17 GM PO DAILY PRN for CONSTIPATION, #30 PACKET 04/30/18 Magnesium Hydroxide* (Milk Of Magnesia*) 400 Mg/5 Ml Oral.susp, 30 ML PO DAILY, ML 04/30/18 Multivitamins* (Theragran*) 1 Tab Tab, 1 TAB PO DAILY, TAB 04/30/18 Clopidogrel Bisulfate (Clopidogrel) 75 Mg Tablet, 75 MG PO DAILY, #30 TAB 04/30/18 Pantoprazole* (Protonix*) 40 Mg Tablet.dr, 40 MG PO DAILY, TAB 03/15/18 Aspirin (Low Dose Aspirin) 81 Mg Tablet.dr, 81 MG PO DAILY, #30 TAB 03/15/18 Insulin Aspart* (Novolog Insulin Pen*) 100 Unit/Ml Soln, 0 SC WITH MEALS BEDTIME, EA SLIDING SCALE 150-199 = 2 UNITS 200-249 = 3 UNITS 250-299 = 5 UNITS 300-349 = 7 UNITS OVER 349 = 10 UNITS NOTIFY MD BELOW 6 OR ABOVE 350 03/15/18 Linagliptin (TRADJENTA) 5 Mg Tablet, 5 MG PO DAILY, TAB 03/15/18 Nitroglycerin* (Nitrostat*) 0.4 Mg Tab.subl, 0.4 MG SL Q5MIN PRN for CHEST PAIN, BOTTLE 03/15/18 Acetaminophen* (Acetaminophen*) 650 Mg Tablet, 650 MG PO Q6H PRN for MILD PAIN LEVEL 1-3, #30 TAB AND TEMP >101 03/15/18 Atorvastatin* (Atorvastatin*) 40 Mg Tablet, 40 MG PO QHS, #30 TAB 10/16/17 Discontinued Reported Medications Benzocaine/Menthol* (Cepacol* Sore Throat Lozenges) 1 Each Lozenge, 1 EACH MM Q6 PRN for SORE THROAT, LOZENGE 08/30/18 Gentamicin Sulfate* (Gentamicin Sulfate* Cream) 0.1% - 30 Gm Cream.gm., 1 APPLIC TOP DAILY, EA 08/30/18 Mupirocin Calcium* (Mupirocin*) 2% - 15 Gram Cream..g., 1 APPLIC TOP TID, #1 TUB 08/30/18 Current Medications Sodium Chloride 1,000 ml @ 25 mls/hr Q24H IV Last administered on 11/08/18at 17:49; Admin Dose 25 MLS/HR; Start 11/08/18 at 16:52 Meds reviewed: Yes Allergies Coded Allergies: No Known Allergies (Verified Allergy, Unknown, 08/30/18) Allergies Reviewed: Yes Labs/Studies Labs Reviewed: Reviewed by anesthesiologist test: N/A Pre-procedure Exam Last vitals Vital Signs Date Temp Pulse Resp B/P (MAP) Pulse Ox O2 O2 Flow FiO2 Time Delivery Rate 11/08/18 97.9 68 18 134/63 97 Room Air 16:47 (86) Airway: Adequate mouth opening Mallampati: Mallampati I Teeth: Normal Lung: Normal Heart: Normal ASA Physical Status ASA physical status: 3 Emergency: None Planned Anesthetic General/MAC: LMA Planned Pain Management Parenteral pain med Pre-operative Attestations Prior to commencing anesthesia and surgery, the patient was re-evaluated, there was verification of: *The patient's identity *The results of appropriate recent lab work and preoperative vital signs *The above evaluation not changing prior to induction *Anesthetic plan, risk benefits, alternative and complications discussed with patient/family; questions answered; patient/family understands, accepts and wishes to proceed. JORGE GRIMALDO MD November 08, 2018 18:16
[2018-11-08] MEDS ORDERED: EPHEDrine 25 MG/5 ML SYG ONE (18:45)
[2018-11-08] MEDS ORDERED: METOCLOPRAMIDE 10 MG INJ ONE (19:02)
--- NOTE | 2018-11-08 19:05 | PDOCDIS ---
Discharge Instructions CONDITION [id number] Patient Condition: [id number] Stable HOME CARE INSTRUCTIONS: [id number] Diet Instructions: [id number] t bearing to left lower extremity) [id number] Bathing Restrictions: Gelgm7d Sponge Bath FOLLOW UP/APPOINTMENTS Follow-up Plan Follow up [address] Gutierrez in [facility] would care clinic at [facility] [place] please call to schedule appointment KALE AIKEN DPM November 08, 2018 19:05
[2018-11-08] MEDS ORDERED: CEFD300C2 PO (19:08)
[2018-11-08] MEDS ORDERED: LABETALOL HCL 20MG INJ IV PRN (19:30)
[2018-11-08] MEDS ORDERED: ONDANSETRON 4 MG INJ IV PRN (19:30)
[2018-11-08] MEDS ORDERED: EPHEDrine 25 MG/5 ML SYG IV PRN (19:30)
[2018-11-08] MEDS ORDERED: MEPERIDINE 25 MG INJ IV PRN (19:30)
[2018-11-08] MEDS ORDERED: METOCLOPRAMIDE 10 MG INJ IV PRN (19:30)
[2018-11-08] MEDS ORDERED: hydrALAzine 20 MG INJ IV PRN (19:30)
[2018-11-08] MEDS ORDERED: DIPHENHYDRAMINE 50 MG INJ IV PRN (19:30)
[2018-11-08] MEDS ORDERED: OXYCODONE/ACETAMINOPHEN (5/325) TAB PO PRN ×2 (19:30)
[2018-11-08] MEDS ORDERED: FENTAnyl 50 MCG/ML VIAL IV PRN ×3 (19:30)
[2018-11-08] MEDS ORDERED: MIDAZOLAM 1 MG/ML 2 ML INJ IV PRN (19:30)
--- NOTE | 2018-11-08 20:37 | SIPON ---
Date/Time of Note Date/Time of Note DATE: 11/08/18 TIME: 20:36 Operative Report Preoperative Diagnosis left foot diabetic ulceration h/o TMA DM2 with PN Postoperative Diagnosis same Operation/Procedure Performed left foot wound bed prep left foot STSG Surgeon see signature line [employer] administrative assistant Deon Foster DPM Anesthesia: MAC Estimated blood loss: 10 - 50 ml's Transfusion Required none Specimen none Grafts/Implants none Complications none CARLY PADILLA DPM November 08, 2018 20:37
--- NOTE | 2018-11-08 20:45 | PAC ---
Date/Time of Note Date/Time of Note DATE: 11/08/18 TIME: 20:45 Post-Anesthesia Notes Post-Anesthesia Note Last documented vital signs Vital Signs Date Temp Pulse Resp B/P (MAP) Pulse Ox O2 O2 Flow FiO2 Time Delivery Rate 11/08/18 70 16 148/75 97 Room Air 19:45 (99) 11/08/18 99.8 19:33 11/08/18 2.0 19:25 Activity: WNL Respiratory function: WNL Cardiovascular function: WNL Mental status: Baseline Pain reasonably controlled: Yes Hydration appropriate: Yes Nausea/Vomiting absent: Yes Comments BT: 98.8 JORGE GRIMALDO MD November 08, 2018 20:45
--- NOTE | 2018-11-08 23:42 | OPR ---
DATE OF OPERATION: 11/08/2018 SURGEON: Caryl Gutierrez DPM LICENSING SERVICES CLERK: Deon Foster DPM PREOPERATIVE DIAGNOSES: 1. Left foot diabetic foot ulceration. 2. Left mid foot amputation. 3. History of osteomyelitis. 4. Peripheral vascular disease. 5. History of revascularization. POSTOPERATIVE DIAGNOSES: 1. Left foot diabetic foot ulceration. 2. Left mid foot amputation. 3. History of osteomyelitis. 4. Peripheral vascular disease. 5. History of revascularization. PROCEDURE PERFORMED: 1. Left foot wound bed preparation for skin grafting. 2. Left foot split-thickness skin graft. PATHOLOGY: None. ANESTHESIA: MAC with local 1% lidocaine plain, 10 mL. MATERIALS: 3-0 nylon. COMPLICATIONS: None. INDICATION FOR PROCEDURE: This is a 78-year-old female with nonhealing ulcerations, has been under w ound care with now significant improvement, now granulation tissue, has residual ulceration measuring approximately 4 x 3 cm and presents for definitive closure. The patient is a diabetic and is on med ications with improved glycemic control. Discussed planned procedure, risks, benefits, potential com plications with the family in Romansh. The foot was marked in the preoperative holding area, the pat ient was given perioperative antibiotics. PROCEDURE IN DETAIL: The patient was brought into the operating room and placed in supine position. Formal timeout was performed. The foot was properly marked. Formal time-out was performed. Extrem ity prepped with Betadine scrub and paint, and draped in the usual sterile fashion. At this time the wound on the left foot plantar aspect was prepared for skin grafting using a curette, pickup, scisso rs, rongeur and irrigated. Ulceration measured approximately 5 x 3 cm. Post-debridement this time, lidocaine was injected to the ipsilateral thigh, and using 1-inch guard, a split thickness skin graft of an inch harvested and meshed 1.5:1 secured to the wound with 3-0 nylon in donor site. He mostasis achieved and was covered with Xeroform and Tegaderm and the foot covered with Xeroform, 4 x 4 gauze, ABD and an Ryan wrap. The patient tolerated the procedure well. POSTOPERATIVE PLAN: Recommend nonweightbearing to the left foot. Follow up in the clinic in 1 week and continue tight glycemic control. The patient has been given a prescription of Omnicef perioperatively and will continue this. Dictated By: CARLY VALDOVINOS/JORGE Conf#: [id number] DID#: [id number]
== END 2018-11-08 20:42 ==
LOC: SDS 14:39
PROVIDERS: ATTEND Podiatrist Foot & Ankle Surgery
DX: E11.621 Type 2 diabetes mellitus with foot ulcer (principal); I73.9 Peripheral vascular disease, unspecified; Z89.432 Acquired absence of left foot; I10 Essential (primary) hypertension; E78.00 Pure hypercholesterolemia, unspecified
CPT/HCPCS: 15120; 82962; J0690; J1815; J2001; J2405; J3010; J1100; J2765; J3370